=== PATIENT | female | born 1995 | race Caucasian/White ===

== ENCOUNTER 2020-06-18 14:06 | Emergency (ER) | payer OTHER, SELFPAY ==
[2020-06-18 14:14] VITALS: BP 100/60; PULSE 78; RESP 16; TEMP 36.2; O2SAT 99
--- NOTE | 2020-06-18 14:20 | ED.URI ---
HPI - URI/Sore Throat General Chief Complaint: Upper Respiratory Infection Stated Complaint: Sore Throat Time Seen by Provider: 06/18/20 14:30 Source: patient and RN notes reviewed Mode of arrival: ambulatory Limitations: no limitations History of Present Illness HPI Narrative: 24 year old female presents to [facility] care with complaints of sore throat for the past 4 days with pain extending up to right ear. Patient states that she has had some fever, denies any chills or sweats, States that her pain is 9/10 and is sharp and achy especially when she swallows and eats. Patient states that she has not noted any nasal congestion or drainage and denies any acute cough or any dyspnea. Patient has clear lung sounds on auscultation with SAO2 99% on room air. Patient does have history of 1/2 ppd history of cigarette usage daily for the past 7 years. MD elicited complaint: sore throat Pertinent past history: other (previous strep throat) Onset (ago): day(s) (4) Consistency: constant Severity: moderate Pain scale (0-10): 9 Description of mucous: clear Able to tolerate fluids by mouth: Yes Exacerbating factors: swallowing Relieving factors: nothing Associated symptoms: fever, sore throat and ear pain Treatments prior to arrival: acetaminophen Related Data Home Medications Medication Instructions Recorded Confirmed dextroamphetamine-amphetamine 20 mg PO BID 06/18/20 06/18/20 fluoxetine 20 mg PO DAILY 06/18/20 06/18/20 lorazepam 1 mg PO TID PRN 06/18/20 06/18/20 prazosin 1 mg PO DAILY 06/18/20 06/18/20 quetiapine 25 mg PO DAILY 06/18/20 06/18/20 Allergies Allergy/AdvReac Type Severity Reaction Status Date / Time Contrast Media Allergy Unknown Hives / Uncoded 06/18/20 14:40 Red Face Review of Systems Review of Systems: Narrative: CONSTITUTIONAL:Positive for some intermittent fevers, denies any chills, or sweats. EYES: Denies visual changes, redness, or discharge. ENT: Denies rhinorrhea, congestion,positive for sore throat, right otalgia. CARDIOVASCULAR: Denies chest pain, palpitations, or edema. RESPIRATORY: Denies cough or dyspnea. GASTROINTESTINAL: Denies abdominal pain, nausea, vomiting, or diarrhea. GENITOURINARY: Denies dysuria or hematuria. SKIN: Denies rash or itching. MUSCULOSKELETAL: Denies back pain, joint pain, or myalgia. NEUROLOGIC: Denies headache, numbness, or weakness. PSYCHIATRIC: Positive anxiety or depression. All systems reviewed & are unremarkable except as noted in HPI and below PMFSH Past Medical History Medical History (Updated 06/19/20 @ 00:00 by Nu Bravo) ADHD (attention deficit hyperactivity disorder) Anxiety and depression Ear infection Interstitial cystitis Strep pharyngitis Surgical History Surgical History (Updated 06/18/20 @ 14:34 by Fatuma Cano NP) History of placement of ear tubes Family History Family History (Updated 06/18/20 @ 14:48 by Fatuma Cano NP) Grandparent Hypertension Social History Social History (Updated 06/18/20 @ 15:04 by Fatuma Cano NP) Smoking packs per day: 0.5 Smoking cigarettes per day: 10.0 Years smoked: 7 Smoking pack-years: 3.50 Smoking status: Current every day smoker Tobacco type: cigarettes Alcohol intake: never Substance use: never Living arrangements: with family Gender identity (if verbalized by the patient): Female Comments At time of signature, agree with nursing past medical, surgical, social and family history. There is no relevant family history pertinent to the presenting complaint Exam Narrative: Exam Narrative: GENERAL: Well-appearing, well-nourished, and in no acute distress. HEAD: Normocephalic, atraumatic. EYES: PERRLA and EOMI. ENT: Nares clear, no rhinorrhea or epistaxis. Mucous membranes moist.TM's intact with right TM dull left TM normal no canal drainage or redness noted, Throat red swollen with tonsils enlarged with white exudates on tonsils and complaints of painful swallo
== END 2020-06-18 15:00 | disposition home or self-care (01) ==
PROVIDERS: Emergency Provider Registered Nurse; PCP Physician Assistant
DX: J03.90 Acute tonsillitis, unspecified (principal); F17.210 Nicotine dependence, cigarettes, uncomplicated; F90.9 Attention-deficit hyperactivity disorder, unspecified type; F41.9 Anxiety disorder, unspecified; F32.9 Major depressive disorder, single episode, unspecified
CPT/HCPCS: 87081; 87880; 99213; G0463

== ENCOUNTER 2020-08-19 16:27 | Emergency (ER) | payer OTHER, SELFPAY ==
[2020-08-19 16:34] VITALS: BP 125/78; PULSE 100; RESP 16; TEMP 36.3; O2SAT 100
--- NOTE | 2020-08-19 16:37 | ED.GENADULT ---
HPI - General Adult General Chief complaint: Upper Respiratory Infection Stated complaint: n/v/cough/alfaro Time Seen by Provider: 08/19/20 16:37 Source: patient Mode of arrival: ambulatory Limitations: no limitations History of Present Illness HPI narrative: 25-year-old female patient presents to the [facility] with complaints of cold symptoms and vomiting since yesterday. Patient states she started having a headache and some nausea yesterday and today started having some vomiting and has vomited 2-3 times. Patient states she did go to work today but was sent home due to her symptoms. Patient states she did have an exposure at work recently. Patient states she has also had a little bit of sore throat, some congestion and runny nose. Patient also reports a headache. Patient denies or breast-feeding but states that she is sexually active and is not currently on control at this time. Patient states she did take some ibuprofen for her symptoms. Patient does report also some low back pain and some lower abdominal pain denies any pain with urination. Patient does report she has a history of interstitial cystitis. Related Data Allergies Allergy/AdvReac Type Severity Reaction Status Date / Time Contrast Media Allergy Unknown Hives / Uncoded 06/18/20 14:40 Red Face Review of Systems Review of Systems: Narrative: CONSTITUTIONAL: Denies fever, chills, or sweats. EYES: Denies visual changes, redness, or discharge. ENT: Positive rhinorrhea, congestion, sore throat, denies otalgia. CARDIOVASCULAR: Denies chest pain, palpitations, or edema. RESPIRATORY: Denies cough or dyspnea. GASTROINTESTINAL: Positive lower abdominal pain, nausea, vomiting, denies diarrhea. GENITOURINARY: Denies dysuria or hematuria. SKIN: Denies rash or itching. MUSCULOSKELETAL: Positive low back pain, denies joint pain, or myalgia. NEUROLOGIC: Positive headache, denies numbness, or weakness. PSYCHIATRIC: Denies anxiety or depression. [facility] Past Medical History Medical History ADHD (attention deficit hyperactivity disorder) Anxiety and depression Ear infection Interstitial cystitis Strep pharyngitis Surgical History Surgical History History of placement of ear tubes Family History Family History Grandparent Hypertension Social History Social History Smoking packs per day: 0.5 Smoking cigarettes per day: 10.0 Years smoked: 7 Smoking pack-years: 3.50 Smoking status: Current every day smoker Tobacco type: cigarettes Alcohol intake: never Substance use: never Gender identity (if verbalized by the patient): Female Comments At the time of my signature I agree with nursing past medical history, surgical, social, and family history. There is no relevant family history pertinent to the presenting complaint. Exam Narrative: Exam Narrative: GENERAL: ill-appearing, well-nourished, and in no acute distress. HEAD: Normocephalic, atraumatic. EYES: PERRLA and EOMI. ENT: Nares with erythema and edema noted bilaterally, no rhinorrhea or epistaxis. Mucous membranes moist. Posterior pharynx no erythema, tonsil management, exudates or lesions present. Bilateral TMs are clear no erythema or foreign bodies in the canal. NECK: Supple. No lymphadenopathy CHEST: Clear to auscultation. No respiratory distress. Patient able talk in clear complete sentences. No tripoding noted. HEART: Regular rate and rhythm. No murmur heard. Normal peripheral pulses. ABDOMEN: Soft, nontender, nondistended, normal active bowel sounds. No CVA tenderness on percussion. EXTREMITIES: Normal range of motion. No edema. SKIN: Warm, dry, no rash. NEURO: No focal deficits. Alert and oriented x3. Course Reevaluation(s) Reevaluation #1: Reevaluated soo
[2020-08-19] MEDS: ONDANSETRON HCL ODT 4 MG TABLET PO (17:06)
== END 2020-08-19 18:22 | disposition home or self-care (01) ==
PROVIDERS: Emergency Provider Nurse Practitioner Family
DX: Z20.822 Contact with and (suspected) exposure to COVID-19 (principal); R11.2 Nausea with vomiting, unspecified; F17.210 Nicotine dependence, cigarettes, uncomplicated
CPT/HCPCS: 81003; 81025; 87081; 87086; 87804; 87880; 99213; A9270; G0463